=== PATIENT | female | born 1940 | race Caucasian/White ===

== ENCOUNTER 2017-04-11 16:56 | Emergency (ER) | payer MEDICARE, MEDICAID ==
[~2017-04-11] VITALS: Ht 165.1 cm; Wt 66.7 kg
[~2017-04-11 16:56] MED LIST: LEVO88TA32 PO; SIMV20TA3; [UNRECOGNIZED DRUG - CODE] PO
[2017-04-11] MEDS ORDERED: FAMOTIDINE 20 MG/2 ML IVP ONE (17:30)
[2017-04-11] MEDS ORDERED: MORPHINE SULFATE 4 MG/ML, 1ML IVPush PRN (17:30)
[2017-04-11] MEDS ORDERED: SODIUM CHLORIDE FLUSH 10ML SYR IVF ONE (17:30)
[2017-04-11] MEDS ORDERED: ONDANSETRON 2MG/ML, 2ML IVPush ONE (17:30)
[2017-04-11 17:59] LABS: BLOOD UREA NITROGEN 16 mg/dL (7-18)
[2017-04-11 18:05] LABS: ASPARTATE AMINO TRANSFERASE 27 U/L (15-37)
[2017-04-11 18:07] LABS: IS PT STATUS REG ER OR PRE ER? YES
[2017-04-11] MEDS ORDERED: FAMOTIDINE 20 MG/2 ML ONE (18:35)
[2017-04-11] MEDS ORDERED: ONDANSETRON 2MG/ML, 2ML ONE (18:35)
[2017-04-11] MEDS ORDERED: MORPHINE SULFATE 4 MG/ML, 1ML ONE (18:35)
[2017-04-11] MEDS ORDERED: MAALOX/HYOSCYAMINE/LIDOCAINE 45 ML BTL PO ONE (20:00)
[2017-04-11] MEDS ORDERED: MAALOX/HYOSCYAMINE/LIDOCAINE 45 ML BTL ONE (20:15)
[2017-04-11] MEDS ORDERED: OMNIPAQUE 350 MG/ML, 100ML BOTTLE ONE (20:27)
[2017-04-11 21:37] VITALS: BP 135/80
== END 2017-04-11 21:39 | disposition home or self-care (01) ==
LOC: ED 19:51
DX: K29.00 Acute gastritis without bleeding (principal); I10 Essential (primary) hypertension; E78.5 Hyperlipidemia, unspecified; E11.9 Type 2 diabetes mellitus without complications
CPT/HCPCS: 36415; 71010; 74177; 76700; 80053; 83690; 84484; 85025; 93005; 96374; 96375; 99285; J2405; Q9967; S0028

== ENCOUNTER 2018-04-23 08:32 | Emergency (ER) | payer MEDICARE, MEDICAID ==
[~2018-04-23] VITALS: Ht 152.4 cm; Wt 64.7 kg
[~2018-04-23 08:32] MED LIST changes: -LEVO88TA32 PO; +LEVO88TA43 PO; +METF-163 PO; -[UNRECOGNIZED DRUG - CODE] PO
[2018-04-23 10:37] VITALS: BP 121/59
== END 2018-04-23 10:40 | disposition home or self-care (01) ==
LOC: ED 10:01
DX: S40.011A Contusion of right shoulder, initial encounter (principal); M19.90 Unspecified osteoarthritis, unspecified site; E07.9 Disorder of thyroid, unspecified; I10 Essential (primary) hypertension; E78.5 Hyperlipidemia, unspecified; E11.9 Type 2 diabetes mellitus without complications; W01.0XXA Fall on same level from slipping, tripping and stumbling without subsequent striking against object, initial encounter; Z90.49 Acquired absence of other specified parts of digestive tract; Y93.89 Activity, other specified; Y99.8 Other external cause status; Y92.009 Unspecified place in unspecified non-institutional (private) residence as the place of occurrence of the external cause
CPT/HCPCS: 99284

== ENCOUNTER 2018-05-09 10:20 | Emergency (ER) | payer MEDICARE, MEDICAID ==
[~2018-05-09] VITALS: Ht 152.4 cm; Wt 64.0 kg
[2018-05-09 10:28] VITALS: BP 99/75
[2018-05-09] MEDS ORDERED: BACITRACIN ZINC OINT 500U/GM, 0.9 GM ONE (11:03)
== END 2018-05-09 11:14 | disposition home or self-care (01) ==
LOC: ED 11:08
DX: L03.115 Cellulitis of right lower limb (principal); M19.90 Unspecified osteoarthritis, unspecified site; E78.5 Hyperlipidemia, unspecified; I10 Essential (primary) hypertension; E11.9 Type 2 diabetes mellitus without complications; Z90.89 Acquired absence of other organs
CPT/HCPCS: 99283

== ENCOUNTER 2018-05-13 16:05 | Emergency (ER) | payer MEDICARE, MEDICAID ==
[~2018-05-13] VITALS: Ht 152.4 cm; Wt 65.0 kg
[2018-05-13 16:14] VITALS: BP 145/76
[2018-05-13] MEDS ORDERED: KETOROLAC 30 MG/1 ML ONE (17:07)
[2018-05-13] MEDS ORDERED: KETOROLAC 30 MG/1 ML IM ONE ×2 (17:30)
== END 2018-05-13 17:59 | disposition home or self-care (01) ==
LOC: ED 17:15
DX: M25.562 Pain in left knee (principal); M19.90 Unspecified osteoarthritis, unspecified site; I10 Essential (primary) hypertension; E78.5 Hyperlipidemia, unspecified; E11.9 Type 2 diabetes mellitus without complications; Z90.89 Acquired absence of other organs
CPT/HCPCS: 73564; 96372; 99284; J1885